=== PATIENT | female | born 1960 | race Caucasian/White ===

== ENCOUNTER 2019-04-14 11:32 | Outpatient (CLI) | payer OTHER ==
[2019-04-14 18:56] LABS: BASOPHILS % (AUTO) 0.2 %; EOSINOPHILS # (AUTO) 0.2 10^3/uL (0.0-0.7); HGB - HEMOGLOBIN 12.3 g/dL (12.0-16.0); LYMPHOCYTES # (AUTO) 2.7 10^3/uL (1.5-3.5); MEAN CORPUSCULAR HEMOGLOBIN 29.6 pg (27.0-31.0); MEAN CORPUSCULAR HGB CONC 31.1 g/dL (32.0-36.0); MEAN PLATELET VOLUME 10.2 fL (7.9-10.8); MONOCYTES # (AUTO) 0.5 10^3/uL (0.0-1.0); MONOCYTES % (AUTO) 5.6 %; NEUTROPHILS # (AUTO) 4.8 10^3/uL (1.5-6.6); PLT - PLATELET COUNT 337 10^3/uL (130-450); RED BLOOD COUNT 4.16 10^6/uL (4.20-5.40); RED CELL DISTRIBUTION WIDTH 13.1 % (12.0-15.0); WHITE BLOOD COUNT 8.2 x10^3/uL (4.8-10.8)
[2019-04-14 20:06] LABS: ALBUMIN/GLOBULIN RATIO 1.1 (1.0-2.2); ALKALINE PHOSPHATASE 92 IU/L (42-121); ALT ALANINE AMINOTRANSFERASE 31 IU/L (10-60); AST ASPARTATE AMINOTRANSFERASE 27 IU/L (10-42); BILIRUBIN,TOTAL 0.6 mg/dL (0.2-1.0); BUN - BLOOD UREA NITROGEN 12 mg/dL (6-20); CALCIUM 9.3 mg/dL (8.5-10.3); CARBON DIOXIDE - CO2 29 mmol/L (21-32); CHLORIDE 103 mmol/L (101-111); CHOL/HDL RATIO 4.6 (<4.4); CHOLESTEROL 237 mg/dL; CREATININE 0.8 mg/dL (0.4-1.0); GFR - MDRD 74 (>89); GLUCOSE 90 mg/dL (70-100); HDL CHOLESTEROL 52 mg/dL; LDL CHOLESTEROL,CALCULATED 157 mg/dL; SODIUM 141 mmol/L (135-145); TOTAL PROTEIN 7.6 g/dL (6.7-8.2); VLDL CHOLESTEROL 28 mg/dL
== END 2019-04-14 23:59 | disposition home or self-care (01) ==
LOC: LAB.N 11:32
PROVIDERS: ATTEND Nurse Practitioner Gerontology
DX: I10 Essential (primary) hypertension (principal); R00.1 Bradycardia, unspecified; R53.83 Other fatigue; R63.5 Abnormal weight gain
CPT/HCPCS: 36415; 80053; 80061; 83721; 84443; 85025

== ENCOUNTER 2020-01-18 09:16 | Outpatient (CLI) | payer OTHER ==
--- NOTE | 2020-01-18 10:12 | XRAY Report ---
PROCEDURE: Foot 3 View LT INDICATIONS: L FOOT SPRAIN PAIN LATERAL TECHNIQUE: 3 views of the foot were acquired. COMPARISON: None FINDINGS: Bones: No fractures or dislocations. Mild midfoot and forefoot joint osteoarthritic changes are seen . No suspicious bony lesions. Small plantar calcaneal enthesophyte is seen. Soft tissues: No tibiotalar joint effusion. Achilles tendon appears normal. IMPRESSION: Mild midfoot and forefoot joint osteoarthritis. Small plantar calcaneal enthesophyte. No acute left f oot fracture or dislocation. Reviewed by: Agustín Maloney MD on 01/18/2020 10:10 AM PDT Approved by: Agustín Maloney MD on 01/18/2020 10:10 AM PDT Station ID: [id number]
== END 2020-01-18 09:17 | disposition home or self-care (01) ==
LOC: DI 09:16
PROVIDERS: ATTEND Family Medicine
DX: M19.072 Primary osteoarthritis, left ankle and foot (principal); M77.32 Calcaneal spur, left foot

== ENCOUNTER 2020-07-12 08:00 | Outpatient (CLI) | payer OTHER ==
--- OUTSIDE RECORDS SUMMARY | 2020-07-13 11:16 | EXTERNAL MEDICAL SUMMARY RPT | Continuity of Care Document ---
:1960 Demographics Phone Unavailable Preferred Language Maltese Marital Status Unknown Restoration Affiliation Unknown Race Unknown Ethnic Group Unknown Author Organization [place] Address [address] [place] [address] Phone Care Team Providers Name Role Phone PA-C Unavailable Unavailable Problems date description facility 2020-07-12 00:00 ACUTE UPPER RESPIRATORY [facility] INFECTION, UNSPECIFIED 2020-07-12 00:00:00 [facility] 2020-07-12 00:00:00 [facility] 2020-07-12 00:00:00 [facility] 2020-07-12 00:00:00 Chronic [facility]itis, [facility] 2020-07-12 00:00:00 [facility] 2020-07-12 00:00:00 [facility] 2020-07-12 00:00:[facility] 2020-07-12 00:00:00 [facility] smoker [facility] 2020-07-12 00:00:00 Chronic [facility]itis [facility] 2020-07-12 00:00:00 Alcohol use [facility] 2020-07-12 00:00:00 Tobacco [facility] 2020-07-12 00:00:00 Total score? [facility] Medications date description facility 2020-07-12 00:00:00 null [facility] 2020-07-12 00:00:00 null [facility] 2020-07-12 00:00:00 AMOXICILLIN-POT CLAVULANATE [facility] 2020-07-12 00:00:00 AMOXICILLIN-POT [facility] Procedures date description facility 2020-07-12 00:00:00 POC STREP TEST [facility] date description facility 2020-07-12 00:00:00 [facility] Results test status date ordered by attending specimen solo e Microbial_identi unknown 2020-07-12 unknown unknown unkno wn fication_kit_rapi 00:00:00 d_strep_method Streptococcus_py unknown 2020-07-12 unknown unknown unkno wn ogenes_DNA_Presen 00:00:00 ce_in_Throat_by_N AA_with_probe_det ection facility observation status value reference units lab abnor mal line range code notes [facility] Microbial_id unknown Neg unknown _[id number] unknown unknown Primary Care entification_ [facility] kit_rapid_str ep_method [facility] Streptococcu unknown Neg unknown _[id number] unknown unknown Primary Care s_pyogenes_DN 9-2 [facility] A_Presence_in _Throat_by_NA A_with_probe_ detection Social History date description facility 2020-07-12 00:00:00 Never smoker [facility] Social History date description facility 2020-07-12 00:00:00 Never smoker [facility] date description facility [id number]
== END 2020-07-12 08:01 | disposition home or self-care (01) ==
LOC: LAB.R 08:00
PROVIDERS: ATTEND Nurse Practitioner
DX: J06.9 Acute upper respiratory infection, unspecified (principal); Z20.822 Contact with and (suspected) exposure to COVID-19

== ENCOUNTER 2020-07-12 15:21 | Outpatient (CLI) | payer OTHER ==
--- NOTE | 2020-07-12 15:48 | XRAY Report ---
PROCEDURE: Chest 2 View X-Ray INDICATIONS: ACUTE UPPER RESPIRATORY INFECTION TECHNIQUE: 2 view(s) of the chest. COMPARISON: None. FINDINGS: Surgical changes and devices: None. Lungs and pleura: No pleural effusions or pneumothorax. Lungs are clear. Mediastinum: Mediastinal contours are normal. Heart size is normal. Bones and chest wall: No suspicious bony abnormalities. Soft tissues appear unremarkable. IMPRESSION: No acute cardiopulmonary process demonstrated radiographically. Reviewed by: Yoandy Sheets MD on 07/12/2020 3:47 PM PST Approved by: Yoandy Sheets MD on 07/12/2020 3:47 PM PST Station ID: [id number]
== END 2020-07-12 23:59 | disposition home or self-care (01) ==
LOC: DI.N 15:21
PROVIDERS: ATTEND Nurse Practitioner
DX: J06.9 Acute upper respiratory infection, unspecified (principal)

== ENCOUNTER 2020-11-03 12:00 | Outpatient (CLI) | payer OTHER ==
--- NOTE | 2020-11-03 14:12 | XRAY Report ---
PROCEDURE: SI Joints INDICATIONS: SACROILIITIS, LEFT TECHNIQUE: 3 views of the sacroiliac joints were acquired. COMPARISON: None FINDINGS: Bones: No sacroiliac joint ankylosis or periarticular erosion. No subchondral cystic change or sclero sis. No suspicious lytic or blastic osseous lesion. Sacral body body is normal in appearance. Soft tissues: Overlying bowel gas pattern is normal. No suspicious soft tissue densities. IMPRESSION: Normal appearance of both sacroiliac joints. Reviewed by: Yoandy Sheets MD on 11/03/2020 2:10 PM PDT Approved by: Yoandy Sheets MD on 11/03/2020 2:10 PM PDT Station ID: [id number]
== END 2020-11-03 23:59 | disposition home or self-care (01) ==
LOC: DI.N 12:00
PROVIDERS: ATTEND Emergency Medicine
DX: M46.1 Sacroiliitis, not elsewhere classified (principal)

== ENCOUNTER 2020-11-22 08:59 | Outpatient (CLI) | payer OTHER ==
[2020-11-22 12:23] LABS: BASOPHILS % (AUTO) 0.4 %; EOSINOPHILS # (AUTO) 0.1 10^3/uL (0.0-0.7); EOSINOPHILS % (AUTO) 1.5 %; HCT - HEMATOCRIT 41.1 % (37.0-47.0); HGB - HEMOGLOBIN 13.5 g/dL (12.0-16.0); LYMPHOCYTES # (AUTO) 2.6 10^3/uL (1.5-3.5); MEAN CORPUSCULAR HEMOGLOBIN 30.5 pg (27.0-31.0); MEAN CORPUSCULAR HGB CONC 32.8 g/dL (32.0-36.0); MEAN CORPUSCULAR VOLUME 92.8 fL (81.0-99.0); MONOCYTES # (AUTO) 0.5 10^3/uL (0.0-1.0); MONOCYTES % (AUTO) 6.4 %; NEUTROPHILS # (AUTO) 5.1 10^3/uL (1.5-6.6); NEUTROPHILS % (AUTO) 60.5 %; PLT - PLATELET COUNT 381 10^3/uL (130-450); RED BLOOD COUNT 4.43 10^6/uL (4.20-5.40); RED CELL DISTRIBUTION WIDTH 12.5 % (12.0-15.0); WHITE BLOOD COUNT 8.4 x10^3/uL (4.8-10.8)
[2020-11-22 12:41] LABS: THYROID STIMULATING HORMONE 2.46 uIU/mL (0.34-5.60)
[2020-11-22 12:48] LABS: ALBUMIN 4.5 g/dL (3.2-5.5); ALBUMIN/GLOBULIN RATIO 1.2 (1.0-2.2); ALKALINE PHOSPHATASE 105 IU/L (42-121); ALT ALANINE AMINOTRANSFERASE 42 IU/L (10-60); AST ASPARTATE AMINOTRANSFERASE 37 IU/L (10-42); BILIRUBIN,TOTAL 0.7 mg/dL (0.2-1.0); BUN - BLOOD UREA NITROGEN 11 mg/dL (6-20); CALCIUM 9.8 mg/dL (8.5-10.3); CARBON DIOXIDE - CO2 29 mmol/L (21-32); CHLORIDE 97 mmol/L (101-111); CHOL/HDL RATIO 4.8 (<4.4); CHOLESTEROL 249 mg/dL; CREATININE 0.7 mg/dL (0.4-1.0); GFR - MDRD 85 (>89); GLUCOSE 107 mg/dL (70-100); HDL CHOLESTEROL 52 mg/dL; LDL CHOLESTEROL,CALCULATED 163 mg/dL; LDL/HDL RATIO 3.1 (<4.4); POTASSIUM 3.8 mmol/L (3.5-5.0); SODIUM 138 mmol/L (135-145); TOTAL PROTEIN 8.3 g/dL (6.7-8.2); TRIGLYCERIDES 170 mg/dL; VLDL CHOLESTEROL 34 mg/dL
== END 2020-11-22 09:00 | disposition home or self-care (01) ==
LOC: LAB.N 08:59
PROVIDERS: ATTEND Family Medicine
DX: I10 Essential (primary) hypertension (principal); R53.83 Other fatigue
CPT/HCPCS: 36415; 80053; 80061; 83721; 84443; 85025

== ENCOUNTER 2020-11-30 08:00 | Outpatient (CLI) | payer OTHER ==
[2020-12-02 10:51] LABS: IMMUNOGLOBULIN A 202 mg/dL (47-310); IMMUNOGLOBULIN G 1162 mg/dL (600-1640); IMMUNOGLOBULIN M 79 mg/dL (50-300)
== END 2020-11-30 23:59 | disposition home or self-care (01) ==
LOC: LAB.WCP 08:00
PROVIDERS: ATTEND Family Medicine
DX: J42 Unspecified chronic bronchitis (principal)
CPT/HCPCS: 36415; 82784

== ENCOUNTER 2021-09-14 08:00 | Outpatient (CLI) | payer OTHER ==
--- NOTE | 2021-09-14 09:24 | XRAY Report ---
PROCEDURE: Ankle 3 View RT INDICATIONS: ANKLE JOINT PAIN, RIGHT TECHNIQUE: 3 views of the ankle were acquired. COMPARISON: None. FINDINGS: BONES: No acute, displaced fracture or dislocation. The ankle mortise is maintained on these nonstre ssed views. Calcaneal enthesophytes are noted. Faint calcification adjacent to the medial malleolus, likely reflecting remote injury. SOFT TISSUES: Lateral soft tissue swelling. IMPRESSION: 1.No acute osseous abnormality. Reviewed by: Prabhakar Centeno MD on 09/14/2021 9:23 AM PDT Approved by: Prabhakar Centeno MD on 09/14/2021 9:23 AM PDT Station ID: [id number]
== END 2021-09-14 23:59 | disposition home or self-care (01) ==
LOC: DI.N 08:00
PROVIDERS: ATTEND Family Medicine
DX: M25.571 Pain in right ankle and joints of right foot (principal)

== ENCOUNTER 2021-10-06 08:11 | Outpatient (CLI) | payer OTHER ==
[2021-10-06 12:10] LABS: ESTIMATED AVERAGE GLUCOSE 128 mg/dL (70-100); HEMOGLOBIN A1c% 6.1 % (4.27-6.07)
[2021-10-06 12:13] LABS: BASOPHILS % (AUTO) 0.5 %; EOSINOPHILS # (AUTO) 0.2 10^3/uL (0.0-0.7); HCT - HEMATOCRIT 39.4 % (37.0-47.0); HGB - HEMOGLOBIN 13.2 g/dL (12.0-16.0); LYMPHOCYTES # (AUTO) 2.7 10^3/uL (1.5-3.5); LYMPHOCYTES % (AUTO) 33.5 %; MEAN CORPUSCULAR HEMOGLOBIN 30.6 pg (27.0-31.0); MEAN CORPUSCULAR HGB CONC 33.5 g/dL (32.0-36.0); MEAN CORPUSCULAR VOLUME 91.2 fL (81.0-99.0); MEAN PLATELET VOLUME 10.2 fL (7.9-10.8); MONOCYTES # (AUTO) 0.5 10^3/uL (0.0-1.0); MONOCYTES % (AUTO) 6.4 %; NEUTROPHILS # (AUTO) 4.6 10^3/uL (1.5-6.6); NEUTROPHILS % (AUTO) 57.4 %; PLT - PLATELET COUNT 349 10^3/uL (130-450); RED BLOOD COUNT 4.32 10^6/uL (4.20-5.40); RED CELL DISTRIBUTION WIDTH 12.2 % (12.0-15.0)
[2021-10-06 12:34] LABS: ALBUMIN 4.1 g/dL (3.2-5.5); ALBUMIN/GLOBULIN RATIO 1.1 (1.0-2.2); ALKALINE PHOSPHATASE 90 IU/L (42-121); ALT ALANINE AMINOTRANSFERASE 40 IU/L (10-60); AST ASPARTATE AMINOTRANSFERASE 33 IU/L (10-42); BILIRUBIN,TOTAL 0.6 mg/dL (0.2-1.0); BUN - BLOOD UREA NITROGEN 10 mg/dL (6-20); CALCIUM 9.1 mg/dL (8.5-10.3); CARBON DIOXIDE - CO2 31 mmol/L (21-32); CHLORIDE 99 mmol/L (101-111); CHOL/HDL RATIO 4.3 (<4.4); CHOLESTEROL 222 mg/dL; CREATININE 0.7 mg/dL (0.4-1.0); GFR - MDRD 85 (>89); GLUCOSE 99 mg/dL (70-100); HDL CHOLESTEROL 52 mg/dL; LDL CHOLESTEROL,CALCULATED 143 mg/dL; LDL/HDL RATIO 2.8 (<4.4); POTASSIUM 3.5 mmol/L (3.5-5.0); SODIUM 139 mmol/L (135-145); TOTAL PROTEIN 7.8 g/dL (6.7-8.2); TRIGLYCERIDES 136 mg/dL; VLDL CHOLESTEROL 27 mg/dL
== END 2021-10-06 08:12 | disposition home or self-care (01) ==
LOC: LAB.N 08:11
PROVIDERS: ATTEND Physician Assistant
DX: E78.5 Hyperlipidemia, unspecified (principal); R73.01 Impaired fasting glucose; K21.9 Gastro-esophageal reflux disease without esophagitis
CPT/HCPCS: 36415; 80053; 80061; 83036; 83721; 85025

== ENCOUNTER 2021-10-14 10:40 | Outpatient (CLI) | payer OTHER ==
--- NOTE | 2021-10-14 11:47 | XRAY Report ---
PROCEDURE: Finger(s) LT INDICATIONS: PAIN IN LEFT 4TH FINGER TECHNIQUE: 2 views of the fourth finger(s) acquired. COMPARISON: Correlation is made with the accompanying hand plain films, 10/14/2021. FINDINGS: Bones: No fractures or dislocations. No suspicious bony lesions. Degenerative changes are seen, with moderate superior joint space narrowing seen involving the proxim al interphalangeal joint and the distal interphalangeal joint. Within the proximal interphalangeal nicole int, there is pencil in cup deformity. Soft tissues: No suspicious soft tissue calcifications. IMPRESSION: These imaging findings are suspicious for inflammatory arthritis. Please consider psoriatic osteoarth ritis. Reviewed by: Mando Johnson MD on 10/14/2021 10:45 AM EBONI Approved by: Mando Johnson MD on 10/14/2021 10:45 AM EBONI Station ID: [id number]
--- NOTE | 2021-10-14 11:50 | XRAY Report ---
PROCEDURE: Hand 2 View BILAT INDICATIONS: POLYARTHRALGIA; ARTHRITIS, RHEUMATOID, FAMILY HX TECHNIQUE: 2 views of the hand(s) acquired. COMPARISON: Correlation is made with the accompanying finger plain films, 10/14/2021. FINDINGS: Bones: No fractures or dislocations. No suspicious bony lesions. Degenerative changes are seen, which affect the distal interphalangeal joints and the proximal interp halangeal joints. At the proximal interphalangeal joint of the fourth finger, there is mild penciling cup deformity seen. The triquetrum is absent on both sides. Soft tissues: No suspicious soft tissue calcifications. IMPRESSION: These imaging findings are consistent with inflammatory arthritis and are consistent with the given c linical history of rheumatoid arthritis. The triquetrum is absent on both sides. Please correlate with surgical history. Reviewed by: Mando Johnson MD on 10/14/2021 10:48 AM EBONI Approved by: Mando Johnson MD on 10/14/2021 10:48 AM EBONI Station ID: [id number]
== END 2021-10-14 10:41 | disposition home or self-care (01) ==
LOC: DI.N 10:40
PROVIDERS: ATTEND Physician Assistant
DX: R93.6 Abnormal findings on diagnostic imaging of limbs (principal); Z82.61 Family history of arthritis; M25.50 Pain in unspecified joint
CPT/HCPCS: 36415; 85651; 86140; 86200; 86430

== ENCOUNTER 2021-10-14 10:46 | Outpatient (CLI) | payer OTHER ==
[2021-10-14 15:07] LABS: RHEUMATOID FACTOR NEGATIVE (Negative)
== END 2021-10-14 10:47 | disposition home or self-care (01) ==
LOC: LAB.N 10:46
PROVIDERS: ATTEND Physician Assistant
DX: Z82.61 Family history of arthritis (principal); M25.50 Pain in unspecified joint
CPT/HCPCS: 36415; 85651; 86140; 86200; 86430

== ENCOUNTER 2021-10-16 06:23 | Day surgery (SDC) | payer OTHER ==
[2021-10-16] MEDS ORDERED: PROPOFOL 500 MG/50 ML 500 MG/50 ML VIAL IV ONE (06:24)
[2021-10-16] MEDS ORDERED: LIDOCAINE-MPF 2% 5 ML VIAL SUBQ ONE (06:24)
[2021-10-16] MEDS ORDERED: LACTATED RINGERS 1,000 ML IV ONE ×2 (06:50→08:39)
--- NOTE | 2021-10-16 06:58 | ANESTHESIA ---
Pre-Anesthesia VS, & Labs - Diagnosis polyps - Procedure colonoscopy Vital Signs: Temp Pulse Resp BP Pulse Ox 36.2 C L 83 18 153/65 H 96 10/16/21 06:43 10/16/21 06:43 10/16/21 06:43 10/16/21 06:43 10/16/21 06:43 Height: 5 ft 7 in Weight (kg): 118 kg Body Mass Index: 40.7 BMI Classification: Morbidly Obese - NPO >8 hours - Is Patient ?: No Home Medications and Allergies Home Medications: Ambulatory Orders Fluticasone [Flonase] 1 ea BID PRN 10/13/21 Losartan/Hydrochlorothiazide [Hyzaar 100-25 Tablet] 1 each PO DAILY 10/13/21 Fluticasone [Flonase] 1 ea BID PRN 10/13/21 Losartan/Hydrochlorothiazide [Hyzaar 100-25 Tablet] 1 each PO DAILY 10/13/21 Allergies/Adverse Reactions: Allergies Allergy/AdvReac Type Severity Reaction Status Date / Time fluoxetine Allergy Unknown Verified 10/13/21 12:28 Sulfa (Sulfonamide Allergy Unknown Verified 10/13/21 12:28 Antibiotics) Anes History & Medical History - Anesthetic History Anesthesia Complications: reports: No previous complications - Medical History Cardiovascular: reports: Hypertension Pulmonary: reports: Asthma, Other Musculoskeletal: reports: Osteoarthritis, Fibromyalgia Endocrine/Autoimmune: reports: None Skin: reports: None Smoking Status: Never smoker History of Cancer?: No - Surgical History General: reports: Colonoscopy Eyes Ears Nose Throat (EENT): reports: Myringotomy (tubes), Tonsil/Adenoidectomy Gynecologic: reports: section, Hysterectomy Orthopedic: reports: Other Exam General: Alert Dental: WNL Mouth Opening: Greater than 4 Fingerbreadths Neck Mobility: Normal Mallampati classification: II Respiratory: Lungs clear Cardiovascular: Regular rate Plan Anesthesia Type: Total IV Consent for Procedure(s) Verified and Reviewed: Yes Code Status: Attempt Resuscitation ASA classification: 2-Mild systemic disease Is this case an emergency?: No
[2021-10-16 09:25] VITALS: BP 128/72
--- NOTE | 2021-10-16 10:42 | ANESTHESIA POST OP EVALUATION ---
Anesthesia Post Eval - Post Anesthesia Eval Vitals: Last Vital Signs Temp 36.5 C 10/16/21 09:15 Pulse 60 10/16/21 09:15 Resp 14 10/16/21 09:15 BP 128/72 10/16/21 09:15 Pulse Ox 98 10/16/21 09:15 CV Function Including HR & BP: Stable Pain Control: Satisfactory Nausea & Vomiting: Negative Mental Status: Baseline Respiratory Status: Airway Patent Hydration Status: Satisfactory Anesthesia Complications: None
== END 2021-10-16 06:24 | disposition home or self-care (01) ==
LOC: SDS 06:23
PROVIDERS: ATTEND Surgery
PROC: 0DBE8ZX Excision of Large Intestine, Via Natural or Artificial Opening Endoscopic, Diagnostic (ICD-10-PCS; 2021-10-16)
PROC: 0DBP8ZX Excision of Rectum, Via Natural or Artificial Opening Endoscopic, Diagnostic (ICD-10-PCS; principal; 2021-10-16 07:30)
DX: K62.5 Hemorrhage of anus and rectum (principal); K57.30 Diverticulosis of large intestine without perforation or abscess without bleeding; K64.4 Residual hemorrhoidal skin tags; J45.909 Unspecified asthma, uncomplicated; E66.01 Morbid (severe) obesity due to excess calories; K64.8 Other hemorrhoids; Z86.010 Personal history of colon polyps; Z87.19 Personal history of other diseases of the digestive system; Z68.41 Body mass index [BMI] 40.0-44.9, adult
CPT/HCPCS: 45380; J7120

== ENCOUNTER 2022-05-29 14:40 | Emergency (ER) | payer OTHER ==
[2022-05-29] MEDS ORDERED: MECLIZINE 12.5 MG TABLET PO STA (15:07)
[2022-05-29] MEDS ORDERED: PROCHLORPERAZINE 10 MG/2 ML VIAL IVP STA (15:09)
[2022-05-29] MEDS ORDERED: SODIUM CHLORIDE 0.9% 1,000 ML IV STA (15:10)
[2022-05-29 15:26] LABS: BASOPHILS # (AUTO) 0.1 10^3/uL (0.0-0.1); BASOPHILS % (AUTO) 0.4 %; EOSINOPHILS # (AUTO) 0.2 10^3/uL (0.0-0.7); EOSINOPHILS % (AUTO) 1.5 %; HCT - HEMATOCRIT 39.6 % (37.0-47.0); HGB - HEMOGLOBIN 13.2 g/dL (12.0-16.0); LYMPHOCYTES # (AUTO) 3.7 10^3/uL (1.5-3.5); LYMPHOCYTES % (AUTO) 28.7 %; MEAN CORPUSCULAR HEMOGLOBIN 30.3 pg (27.0-31.0); MEAN CORPUSCULAR HGB CONC 33.3 g/dL (32.0-36.0); MEAN CORPUSCULAR VOLUME 90.8 fL (81.0-99.0); MEAN PLATELET VOLUME 9.3 fL (7.9-10.8); MONOCYTES # (AUTO) 0.9 10^3/uL (0.0-1.0); MONOCYTES % (AUTO) 6.6 %; NEUTROPHILS # (AUTO) 8.1 10^3/uL (1.5-6.6); NEUTROPHILS % (AUTO) 62.3 %; PLT - PLATELET COUNT 390 10^3/uL (130-450); RED BLOOD COUNT 4.36 10^6/uL (4.20-5.40); RED CELL DISTRIBUTION WIDTH 12.1 % (12.0-15.0)
--- NOTE | 2022-05-29 15:38 | ED Physician Documentation ---
History of Present Illness - Stated complaint Stated Complaint: VERTIGO - Chief complaint Chief Complaint: Neuro - History obtained from History obtained from: Patient - Additonal information Additional information: This is a very pleasant 61-year-old female With a past medical history of hypertension, asthma, chronic sinusitis,who presented with sudden onset of vertigo and nausea/vomiting just prior to arrival. The patient states she was in her usual state of health until this developed, she has not had any recent cough or URI symptoms, no fever or chills, no headache or vision changes, no foc al weakness or numbness, no ataxia prior to this, no abdominal pain, no urinary symptoms. She did have dental work about a 10 days ago and was on antibiotics for that which she has completed. She has no ongoing dental pain or facial swelling. She has not had vertigo in the past. She describes symptoms as worse when she moves her head side to side, if she turns particularly to the left side she feels as though she will fall down. She is accompanying retching, some emesis. She is not attempting medication other than Zofran which is given by EMS which provided no relief. Review of Systems Ten Systems: 10 systems reviewed and negative (Except as noted in HPI) PD PAST MEDICAL HISTORY - Past Medical History Past Medical History: Yes Cardiovascular: Hypertension Respiratory: Asthma, Other Endocrine/Autoimmune: None GI: None POSITION DESCRIPTION MANAGER: None : None HEENT: Chronic sinusitis Psych: None Musculoskeletal: Osteoarthritis, Fibromyalgia Derm: None - Past Surgical History Past Surgical History: No General: Colonoscopy Ortho: Other /POSITION DESCRIPTION MANAGER: section, Hysterectomy HEENT: Myringotomy (tubes), Tonsil/Adenoidectomy - Present Medications Home Medications: Ambulatory Orders Medication Instructions Recorded Confirmed Fluticasone [Flonase] 1 ea BID PRN 10/13/21 05/29/22 Losartan/Hydrochlorothiazide 1 each PO DAILY 10/13/21 05/29/22 [Hyzaar 100-25 Tablet] LORazepam [Ativan] 0.5 mg PO Q6H PRN #12 tablet 05/29/22 Meclizine HCl [Antivert] 25 mg PO Q6H PRN #30 ea 05/29/22 Ondansetron Odt [Zofran] 4 mg TL Q6H PRN #20 tablet 05/29/22 - Allergies Allergies/Adverse Reactions: Allergies Allergy/AdvReac Type Severity Reaction Status Date / Time fluoxetine Allergy Unknown Verified 05/29/22 14:50 Sulfa (Sulfonamide Allergy Unknown Verified 05/29/22 14:50 Antibiotics) - Social History Does the pt smoke?: No Smoking Status: Never smoker Does the pt drink ETOH?: No Does the pt have substance abuse?: No PD ED PE NORMAL - Vitals Vital signs reviewed: Yes - General General: Alert and oriented X 3, Well developed/nourished, Other (Retching appears nontoxic) - HEENT HEENT: Atraumatic, PERRL, Moist mucous membranes, Pharynx benign, Other (Nystagmus) - Neck Neck: Supple, no meningeal sign, No JVD - Cardiac Cardiac: RRR, No murmur - Respiratory Respiratory: No respiratory distress, Clear bilaterally - Abdomen Abdomen: Normal bowel sounds, Soft, Non tender, Non distended - Derm Derm: Normal color, Warm and dry, No rash - Extremities Extremities: No deformity, No edema - Neuro Neuro: Alert and oriented X 3, No motor deficit, No sensory deficit, Normal speech, Other (+ saumya-hallpike) Eye Opening: Spontaneous Motor: Obeys Commands Verbal: Oriented GCS Score: 15 - Psych Psych: Normal mood, Normal affect Results - Vitals Vitals: Vital Signs - 24 hr 05/29/22 05/29/22 05/29/22 14:46 15:47 16:43 Temperature 37 C Heart Rate 59 L 52 L 54 L Respiratory 15 13 14 Rate Blood Pressure 156/57 H 135/67 H 140/64 H O2 Saturation 97 98 99 05/29/22 18:55 Temperature 36.5 C Heart Rate 66 Respiratory 16 Rate Blood Pressure 150/68 H O2 Saturation 97 Oxygen O2 Source Room air - EKG (time done) No standard instances Rate: Rate (enter#) (61) Rhythm: NSR [place]: Normal Intervals: Prolonged DC QRS: Normal Ischemia: Non specific changes Other comments: Other comments (artifact) Compare to prior EKG: Old EKG unavailable Computer interpretation: Agree with computer - Labs Labs: Laboratory Tests 05/29/22 05/29/22 05/29/22 15:20 15:20 15:20 WBC 13.0 H RBC 4.36 Hgb 13.2 Hct 39.6 MCV 90.8 MCH 30.3 MCHC 33.3 RDW 12.1 Plt Count 390 MPV 9.3 Neut # (Auto) 8.1 H Lymph # (Auto) 3.7 H [place] # (Auto) 0.9 Eos # (Auto) 0.2 Baso # (Auto) 0.1 Absolute Nucleated RBC 0.00 Nucleated RBC % 0.0 Sodium 139 Potassium 3.3 L Chloride 97 L Carbon Dioxide 27 Anion Gap 15.0 H BUN 10 Creatinine 0.6 Estimated GFR (MDRD) 102 Glucose 124 H Calcium 9.8 Troponin I High Sens 3.1 Urine Color Urine Clarity Urine pH Ur Specific [place] Urine Protein Urine Glucose (UA) Urine Ketones Urine Occult Blood Urine Nitrite Urine Bilirubin Urine Urobilinogen Ur Leukocyte Esterase Urine RBC Urine WBC Ur Squamous Epith Cells Urine Bacteria Urine Culture Comments 05/29/22 15:29 WBC RBC Hgb Hct MCV MCH MCHC RDW Plt Count MPV Neut # (Auto) Lymph # (Auto) [place] # (Auto) Eos # (Auto) Baso # (Auto) Absolute Nucleated RBC Nucleated RBC % Sodium Potassium Chloride Carbon Dioxide Anion Gap BUN Creatinine Estimated GFR (MDRD) Glucose Calcium Troponin I High Sens Urine Color YELLOW Urine Clarity CLEAR Urine pH 6.0 Ur Specific [place] 1.020 Urine Protein TRACE Urine Glucose (UA) NEGATIVE Urine Ketones NEGATIVE Urine Occult Blood NEGATIVE Urine Nitrite NEGATIVE Urine Bilirubin NEGATIVE Urine Urobilinogen 0.2 (NORMAL) Ur Leukocyte Esterase NEGATIVE Urine RBC 0-5 Urine WBC 0-3 Ur Squamous Epith Cells MOD Squamous H Urine Bacteria Moderate H Urine Culture Comments NOT INDICATED PD MEDICAL DECISION MAKING - ED course Complexity details: reviewed results, re-evaluated patient, considered differential, d/w patient, d/w family ED course: Pt presented w/ sudden onset vertigo and vomiting. She is stable appearing on arrival w/ normal vital signs, but is actively retching. She had received zofran via EMS w/ no improvement in her symptoms. On physical exam here, pt had + saumya hallpike maneuver and nystagmus but no neurologic changes. Her symptoms were exacerbated by certain positions and better at rest. She was intiially given antiemetic and meclizine and had improvement in her symptoms but they recurred when she walked to the bathroom. We then gave her a total of 1mg of IV ativan (0.5mg x 2) with more improvement. Pt was able to tolerate movement and was no longer retching. I discussed w/ patient that her symptoms were suspicious for BPPV and she has no exam findings to suggest a central lesion or CVA. I discussed supportive measures and instructed pt on the Claudia maneuver to do at home several times a day until symptoms improved. We will discharge her w/ prn meclizine, compazine, and ativan to use only as needed. If no improvement in 48 hours or worsening at any point in time, such as focal neuro changes, headache, fever, or other new findings, pt advised to return to the ER. I advised no driving or operating machinery or engaging in any activities that could result in harm if an episode of vertigo struck, until symptoms completely resolved. Departure - Departure Disposition: Home, Self Care Clinical Impression: Benign paroxysmal positional vertigo Qualifiers: Laterality: bilateral Qualified Code(s): H81.13 - Benign paroxysmal vertigo, bilateral Condition: Good Instructions: Vertigo Paroxysmal Positional, ED BPV Vertigo Prescriptions: Meclizine HCl [Antivert] 25 mg PO Q6H PRN #30 ea PRN Reason: vertigo LORazepam [Ativan] 0.5 mg PO Q6H PRN #12 tablet PRN Reason: Vertigo Ondansetron Odt [Zofran] 4 mg TL Q6H PRN #20 tablet PRN Reason: Nausea / Vomiting Comments: You presented with sudden onset vertigo and vomiting. This is likely due to what is called benign paroxysmal positional vertigo. It can give you sudden severe dizziness and vertigo symptoms as well as vomiting. It can be improved by doing exercises as we discussed and I have printed out for you. You also want to try to stay well-hydrated and I have given you antiemetics as well as an anxiety medication that can help with these symptoms. Antianxiety medicine however can make you very drowsy so you should only use as needed and should not combine with any narcotics or alcohol. You should not drive or operate heavy machinery until your symptoms have resolved. Sometimes it resolves quickly however sometimes it takes several days if not longer. If you have ongoing symptoms, please follow-up with your primary doctor or return to the ER if worsening. Discharge Date/Time: 05/29/22 19:19
[2022-05-29 15:39] LABS: CALCIUM 9.8 mg/dL (8.5-10.3); CREATININE 0.6 mg/dL (0.4-1.0); POTASSIUM 3.3 mmol/L (3.5-5.0)
[2022-05-29] MEDS ORDERED: LORazepam 2 MG/ML VIAL IVP STA ×2 (16:29→18:51)
[2022-05-29 17:38] LABS: BILIRUBIN,URINE NEGATIVE (NEGATIVE); GLUCOSE, URINE (UA) NEGATIVE (NEGATIVE); KETONES,URINE (UA) NEGATIVE (NEGATIVE); LEUKOCYTE ESTERASE, URINE NEGATIVE (NEGATIVE); NITRITE,URINE NEGATIVE (NEGATIVE); OCCULT BLOOD,URINE NEGATIVE (NEGATIVE); PROTEIN,URINE TRACE mg/dL (NEGATIVE); UROBILINOGEN,URINE 0.2 (NORMAL) E.U./dL (NORMAL)
[2022-05-29 17:39] LABS: CLARITY,URINE CLEAR (CLEAR)
[2022-05-29 17:45] LABS: BACTERIA,URINE Moderate /HPF (None Seen); RBC,URINE 0-5 /HPF (0-5); SQUAMOUS EPITHELIAL CELL,UR MOD Squamous (<= Few); WBC,URINE 0-3 /HPF (0-5)
[2022-05-29 18:55] VITALS: BP 150/68
== END 2022-05-29 19:19 | disposition home or self-care (01) ==
LOC: EDUNIT# → ED 14:40
DX: H81.13 Benign paroxysmal vertigo, bilateral (principal)
CPT/HCPCS: 36415; 80048; 81001; 84484; 85025; 93005; 96374; 96375; 96376; 99284; A9270; J2060; 87086

== ENCOUNTER → 2022-05-29 | Outpatient (CLI) | payer OTHER | END | disposition critical access hospital (66) | LOC: EMS 14:36 | DX: R42 Dizziness and giddiness (principal); R11.2 Nausea with vomiting, unspecified | CPT/HCPCS: A0425; A0427 ==

== ENCOUNTER 2022-07-27 07:01 | Outpatient (CLI) | payer OTHER ==
[2022-07-27] MEDS ORDERED: GADOBUTROL 15 MMOL/15 ML VIAL ONE (07:06)
[2022-07-27 07:34] LABS: CREATININE 0.7 mg/dL (0.4-1.0)
[2022-07-27] MEDS ORDERED: GADOBUTROL 15 MMOL/15 ML VIAL IVP ONE (09:12)
--- NOTE | 2022-07-27 13:58 | MRI Report ---
PROCEDURE: BRAIN W/WO INDICATIONS: HEADACHE, VERTIGO CONTRAST: 11.3 TECHNIQUE: Noncontrast axial T1 spin echo, axial T2 fast spin echo, sagittal and axial FLAIR, coronal T2 fast sp in echo, axial gradient echo, axial diffusion and ADC through the brain. After the administration of contrast, axial and coronal T1 spin echo with fat saturation through the brain. COMPARISON: None. FINDINGS: Image quality: Excellent. CSF spaces: Basal cisterns are patent. No extra-axial fluid collections. Ventricles are normal in size and shape. Brain: No midline shift. No intracranial bleeds or masses. No abnormal intracranial enhancement. There is mild age-commensurate cerebral volume loss and mild periventricular white matter chronic sma ll vessel ischemic change. The brainstem appears normal. Diffusion-weighted images demonstrate no a cute ischemic insults. No chronic ischemic insults. Normal intravascular flow voids are present. Skull and face: Calvarial marrow is normal in signal. Orbits appear normal. Sinuses: Sinuses and mastoids appear clear. IMPRESSION: No acute intracranial abnormality or finding to explain symptoms. Mild atrophic commensurate global cerebral volume loss and chronic microvascular ischemic changes. Reviewed by: Yoandy Sheets MD on 07/27/2022 1:56 PM PST Approved by: Yoandy Sheets MD on 07/27/2022 1:56 PM PST Station ID: [id number]
== END 2022-07-27 07:02 | disposition home or self-care (01) ==
LOC: LAB 07:01 → DI 07:02
PROVIDERS: ATTEND Physician Assistant
DX: R51.9 Headache, unspecified (principal); R42 Dizziness and giddiness
CPT/HCPCS: 36415; 70553; 82565; A9585

== ENCOUNTER 2023-07-12 08:31 | Outpatient (CLI) | payer OTHER ==
[2023-07-12 12:10] LABS: BASOPHILS % (AUTO) 0.5 %; EOSINOPHILS # (AUTO) 0.2 10^3/uL (0.0-0.7); EOSINOPHILS % (AUTO) 2.5 %; HCT - HEMATOCRIT 39.8 % (37.0-47.0); HGB - HEMOGLOBIN 12.9 g/dL (12.0-16.0); LYMPHOCYTES # (AUTO) 2.7 10^3/uL (1.5-3.5); LYMPHOCYTES % (AUTO) 31.5 %; MEAN CORPUSCULAR HEMOGLOBIN 30.3 pg (27.0-31.0); MEAN CORPUSCULAR HGB CONC 32.4 g/dL (32.0-36.0); MEAN CORPUSCULAR VOLUME 93.4 fL (81.0-99.0); MEAN PLATELET VOLUME 9.9 fL (7.9-10.8); MONOCYTES # (AUTO) 0.6 10^3/uL (0.0-1.0); MONOCYTES % (AUTO) 6.7 %; NEUTROPHILS # (AUTO) 5.1 10^3/uL (1.5-6.6); NEUTROPHILS % (AUTO) 58.5 %; PLT - PLATELET COUNT 329 10^3/uL (130-450); RED BLOOD COUNT 4.26 10^6/uL (4.20-5.40); RED CELL DISTRIBUTION WIDTH 12.6 % (12.0-15.0); WHITE BLOOD COUNT 8.6 x10^3/uL (4.8-10.8)
[2023-07-12 12:46] LABS: ALBUMIN 4.3 g/dL (3.2-5.5); ALBUMIN/GLOBULIN RATIO 1.3 (1.0-2.2); ALKALINE PHOSPHATASE 93 IU/L (42-121); ALT ALANINE AMINOTRANSFERASE 47 IU/L (10-60); AST ASPARTATE AMINOTRANSFERASE 38 IU/L (10-42); BILIRUBIN,TOTAL 0.5 mg/dL (0.2-1.0); BUN - BLOOD UREA NITROGEN 10 mg/dL (6-20); CALCIUM 9.5 mg/dL (8.5-10.3); CARBON DIOXIDE - CO2 32 mmol/L (21-32); CHLORIDE 99 mmol/L (101-111); CHOL/HDL RATIO 3.7 (<4.4); CHOLESTEROL 220 mg/dL; CREATININE 0.7 mg/dL (0.6-1.3); GFR - MDRD 85 (>89); GLUCOSE 106 mg/dL (74-104); HDL CHOLESTEROL 59 mg/dL; LDL CHOLESTEROL,CALCULATED 132 mg/dL; LDL/HDL RATIO 2.2 (<4.4); POTASSIUM 3.6 mmol/L (3.5-4.5); SODIUM 141 mmol/L (135-145); TOTAL PROTEIN 7.5 g/dL (6.4-8.9); TRIGLYCERIDES 146 mg/dL (48-352); URIC ACID 8.1 mg/dL (2.3-6.6); VLDL CHOLESTEROL 29 mg/dL
[2023-07-12 12:49] LABS: ESTIMATED AVERAGE GLUCOSE 126 mg/dL (70-100)
== END 2023-07-12 08:32 | disposition home or self-care (01) ==
LOC: LAB.N 08:31
PROVIDERS: ATTEND Physician Assistant
DX: I10 Essential (primary) hypertension (principal); M10.9 Gout, unspecified; E78.5 Hyperlipidemia, unspecified; R73.03 Prediabetes
CPT/HCPCS: 36415; 80053; 80061; 83036; 83721; 84550; 85025

== ENCOUNTER 2024-03-20 09:24 | Outpatient (CLI) | payer OTHER ==
--- NOTE | 2024-03-20 13:44 | XRAY Report ---
PROCEDURE: Finger(s) RT INDICATIONS: DEQUERVAINS TENOSYNOVITIS TECHNIQUE: AP hand, 3 views of the first finger(s) acquired. COMPARISON: 10/14/2021 FINDINGS: Bones: No fractures or dislocations. No suspicious bony lesions. Interphalangeal joint arthritic c hanges with marginal osteophyte. Incidental resection of the trapezium Soft tissues: No suspicious soft tissue calcifications. IMPRESSION: First interphalangeal joint osteoarthritis. No fracture Reviewed by: Bryant Stephenson MD on 03/20/2024 12:42 PM AKDT Approved by: Bryant Stephenson MD on 03/20/2024 12:42 PM AKDT Station ID: [id number]
== END 2024-03-20 09:25 | disposition home or self-care (01) ==
LOC: DI.N 09:24
PROVIDERS: ATTEND Physician Assistant Medical
DX: M19.041 Primary osteoarthritis, right hand (principal)